=== PATIENT | female | born 1995 | race Caucasian/White ===

== ENCOUNTER 2023-04-03 17:55 | Emergency (ER) | payer OTHER, SELFPAY ==
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
[2023-04-03 18:52] VITALS: BP 150/114; PULSE 120; RESP 18; TEMP 36.8; O2SAT 97
[2023-04-03 20:37] LABS: Basophils Percent Auto 0.4 % (0.2-1.2); Eosinophils Absolute Auto 0.2 K/mm3 (0-0.3); Eosinophils Percent Auto 1.4 % (0-4.4); Hematocrit 44.5 % (37.0-47.0); Hemoglobin 15.3 g/dL (12.0-15.0); Immature Granulocyte Absolute 0.03 K/mm3 (0.00-0.031); Immature Granulocyte Percent A 0.3 % (0-0.5); Lymphocytes Absolute Auto 2.11 K/mm3 (0.9-3.2); Lymphocytes Percent Auto 20.3 % (18.3-44.2); Mean Corpuscular HGB Conc 34.4 g/dl (32-36); Mean Corpuscular Hemoglobin 32.1 pg (26-34); Mean Corpuscular Volume 93.3 fl (80-100); Mean Platelet Volume 10.4 fl (7.4-10.4); Monocytes Absolute Auto 0.8 K/mm3 (0.1-0.6); Monocytes Percent Auto 8.1 % (2.6-8.5); Neutrophils Absolute Auto 7.2 K/mm3 (1.3-6.7); Neutrophils Percent Auto 69.5 % (45.5-73.1); Platelet Count Result 355 k/mm3 (150-375); Red Blood Count 4.77 M/mm3 (4.2-5.4); Red Cell Distribution Width 11.9 % (11.5-14.5); White Blood Count 10.4 K/mm3 (4.5-10.0)
[2023-04-03 20:49] LABS: Prothrombin Time 13.2 Seconds (11.1-14.7)
[2023-04-03 20:50] LABS: Partial Thromboplastin Time 29.7 SECONDS (22.3-36.8)
[2023-04-03 20:51] LABS: Alanine Aminotransferase 36 U/L (6-35); Albumin Level 4.4 g/dL (3.5-5.1); Alkaline Phosphatase 79 U/L (38-126); Anion Gap 11 mmol/L (8-16); Aspartate Amino Transferase 34 U/L (14-36); Bilirubin,Total 0.5 mg/dL (0.2-1.3); Blood Urea Nitrogen 12 mg/dL (7-17); Carbon Dioxide 25 mmol/L (22-30); Chloride 104 mmol/L (98-107); Estimated CRCL calculation 129 ml/min; Estimated Glomerular Filt Rate > 60; Glucose 89 mg/dL (65-110); Potassium 3.7 mmol/L (3.4-5.0); Sodium 140 mmol/L (137-145)
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
[2023-04-03 22:29] VITALS: BP 133/92; PULSE 82; O2SAT 97
== END 2023-04-03 22:30 | disposition home or self-care (01) ==
PROVIDERS: Emergency Provider Physician Assistant; PCP Internal Medicine
DX: S16.1XXA Strain of muscle, fascia and tendon at neck level, initial encounter (principal); V44.5XXA Car driver injured in collision with heavy transport vehicle or bus in traffic accident, initial encounter
CPT/HCPCS: 36415; 70450; 71260; 72125; 72129; 72132; 74177; 80053; 81025; 85025; 85610; 85730; 99284; Q9967

== ENCOUNTER 2025-02-18 13:23 | Outpatient (CLI) | payer OTHER, SELFPAY ==
--- NOTE | ~2025-02-18 | US_ITS ---
US OB limited 02/18/2025 14:06 Indication: Vaginal bleeding with Procedure: High-resolution Limited obstetrical ultrasound utilizing transabdominal technique Comparison: No prior studies for comparison. Findings: There is a single living intrauterine in variable presentation. heart rate 151 BPM. Placenta is fundal/posterior measuring 4.1 cm to the cervix. Amniotic fluid is subjectively normal. Impression: 1: Single living intrauterine in variable presentation. Reviewed, dictated and finalized at location B. Impression: 1: Single living intrauterine in variable presentation.
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
--- OUTSIDE RECORDS SUMMARY | 2025-02-18 13:30 | XMS_ITS | Data Portability ---
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 [address], [facility] 04/20/2024 15:17:35 01/11/2025 text/html this patient is a 29-year-old female who presents for amenorrhea. She is a positive test. Ultrasound revealed a 1st trimester gestation. Patient has no complaints. We talked about early care. Talked about genetic screening. We talked about her ultrasound results. We talked about the 12 week ultrasound that has genetic screening components. She was given recommendations on exercise, diet, [id number]-[id number] medications. We reviewed her obstetric history. We reviewed her medical history. We reviewed her social history. She will begin routine care at her next visit. anxiety and depression - stable. pulmonic valve rugurg., Braydon Mcdaniel MD [address], [place], [address], [facility] 01/11/2025 11:11:42 OBGyn Episode Ob Episode Information Episode Created Date Number of Fetuses Patient Bloodtype Patient rh Status Prepregnancy Weight lbs Domestic Partner Domestic Partner Phone Father Name Head Filter Tank Tender Helper Status 02/09/20 25 1 Jaylen OPEN Fetus Data First Name Last Name Admitted to NICU Weight (g) Sex Living Outcome Pediatric Complications Fetus ID Race Codes Race Delivery Type [id number] Problems Problem Notes Problem Name Start Date End Date Resolution Snomed Code Not e History of rheumatic fever 02/08/2025 [id number] MFM Consult ref erral faxed 02/09 Thanh Calculation Initial Thanh Date Initial Exam Date Initial Exam Provider Initial Ultrasound Date Last Menstrual Period Date Ultra Sound Weeks Gestation 02/08/2025 01/11/2025 11/11/2024 8 Eighteen To Twenty Week Thanh Update Ultra Sound Date Fundal Height At Umbil Quickening Date Ultra Sound Latest Weeks Gestation Final Thanh Confirmed By Final Thanh Confirmed Date Final Thanh Date Ultra Sound Latest Days Gestation 0 [email or web address] 02/08/2025 08/18/20 25 0 Pre-nate Flowsheet Flowsheet Date 02/08/2025 Meneses Score Blood Edema Fundus Height Fundus Units Glucose Ketones Leukocytes Nitrite Labor Signs Protein Cervic Dilation Cervic Effacement Cervic Station Type Weight in lbs Pre/Post Dialysis Refused Weight [id number] BP Diastolic BP Location Tested BP Systolic BP Type 88 L arm 143 sitting Fetus Heart Rate Present Fetus Movement A No Comments this patient is a 29 year-ol d primiparous female at 12 weeks' gestation who presents for initial care. Her medical, surgical, obstetric history is unremarkable. She is vaccinated. She was given precautions recommendations for . We talked about vaccines in . Talked about care in detail. She is having genetic testing. She had a normal 12 week ultrasound. To begin routine care. Menstrual History Last Menstrual Date Menses Monthly On Bcp Conception Prior Menses Frequency Hcg Plus Date Menarche Onset Age 0311/11/2024 true Delivery Information Delivery Date Delivery Type Labor Anesthesia Weeks Gestation Incision Type Labor Labor Length Hrs Delivered By Post Complications Tubal Sterilization Discharge Date Comments Discharge Information Feeding Method Contraceptive Method Maternal HG B and HCT Levels
--- OUTSIDE RECORDS SUMMARY | 2025-02-18 13:30 | XMS_ITS | Clinical Summary ---
Author Organization [facility] Address [address] [place] [address] Care Team Providers Care Crushed Stone Grader Name Role Phone Unavailable Primary Care Provider Unavailabl e Social History Tobacco Use Types Packs/Day Years Used Date Smoking Tobacco: Never Assessed Comments Unknown Sex and Gender Information Value Date Recorded Sex Assigned at Not on file Legal Sex Female 9:38 AM CDT Gender Identity Not on file Sexual Orientation Not on file Plan of Treatment Health Maintenance Due Date Last Done Comments Hepatitis C Virus (HCV) Screening 1996 TdaP Immunization 1996 Hepatitis B Immunization (1 of 3 - 19+ 3-dose series) 2015 Pap Smear 2017 Influenza Immunization (#1) 05/09/202405/10, 06/17/2017 SARS-COV-2 Immunization ( season) 2024 10/10/2020, 09/12/2020 Respiratory Syncytial Virus (RSV) Immunization (Adult) (1 - 1-dose 75+ series) 2071 Meningococcal Immunization (ACWY) Aged Out No longer eligible b ased on patient's age to complete this topic Pneumococcal Immunization Combined Aged Out No longer eligible b ased on patient's age to complete this topic Rotavirus Immunization Aged Out No lo nger eligible based on patient's age to complete this topic Insurance [employer] on [place] [address] [place] [address]
--- OUTSIDE RECORDS SUMMARY | 2025-02-18 13:30 | XMS_ITS | Clinical Summary ---
Author Organization [facility] Address [address] [place] [address] Care Team Providers Care Remediation Bioanalytics Consultant Name Role Phone Alessandra Salmon MD Primary Care Provider + Allergies Active Allergy Reactions Criticality Noted Date Comments Amoxicillin-Pot Clavulanate Clindamycin Lactose Stomach upset Low 06/11/2012 Medications traMADoL (ULTRAM) 50 mg tabletIndicatio ns:Dog bite of right hand, initial encounter Take 1 tablet (50 mg total) by mouth every 6 (six) hours as needed for pain 15 tablet 2 Active ALPRAZolam (XANAX) 0.5 mg tablet Take 0.5 mg by mouth 3 (three) times a day as needed 0 Active albuterol HFA (PROVENTIL HFA,VENTOLIN HFA,PROAIR HFA) 90 mcg/actuation inhaler Inhale 2 puffs every 6 (six) hours as needed 4 Active busPIRone (BUSPAR) 5 mg tablet Take 5 mg by mouth 2 (two) times a day 2 Active etonogestreL (NEXPLANON) 68 mg implant by Subdermal route. Active FLUoxetine (PROzac) 20 mg tablet Take 20 mg by mouth daily 0 Active Active Problems Problem Noted Date Diagnosed Date Obesity with body mass index 30 or greater 01/08 Tricuspid valve insufficiency 12/18/2016 Rheumatic fever 12/18/2016 Diabetes mellitus 12/18/2016 Family History Medical History Relation Name Comments Hyperlipidemia Father High choleste rol - (Added by TW Conv) Hypertension Father Family history of hypertension - (Added by TW Conv) Hypertension Mother Family history of hypertension - (Added by TW Conv) Asthma Other Family history of asthma - (Added by TW Conv) Relation Name Status Comments Father Mother Other Social History Tobacco Use Types Packs/Day Years Used Date Smoking Tobacco: Never Comments No Sex and Gender Information Value Date Recorded Sex Assigned at Not on file Legal Sex Female 2:59 PM CDT Gender Identity Not on file Sexual Orientation Not on file Obstetrics History Last Filed Vital Signs Vital Sign Reading Time Taken Comments Blood Pressure 126/78 08/19/2023 8:16 AM PRUNER Pulse 111 08/19/2023 8:16 AM PRUNER Temperature 36.3 C (97.4 F) 08/19/2023 8:16 AM PRUNER Respiratory Rate 18 08/19/2023 8:16 AM PRUNER Oxygen Saturation 99% 08/19/2023 8:16 AM PRUNER Inhaled Oxygen Concentration - - Weight 97.5 kg (215 lb) 08/19/2023 8:16 AM PRUNER Height 175.3 cm (5' 9) 08/19/2023 8:16 AM PRUNER Body Mass Index 31.75 08/19/2023 8:16 AM PRUNER Plan of Treatment Health Maintenance Due Date Last Done Comments Albumin Creatinine Ratio, Urine 1996 Cervical Cancer Screening 1996 Depression Screening 1996 Hemoglobin A1C 1996 Hepatitis C Screening 1996 eGFR 1996 Dilated Eye Exam 1996 Foot Exam 1996 Lipid Panel 1996 Regular Well Visit/Exam 18-64 2014 Pneumococcal vaccine <65 (1 of 2 - PCV) 2015 Covid-19 Vaccine (5 - 2023-2 5 season) 2024 10/10/2021, 09/12/2021, 10/10/2020, Additional history exists Influenza Vaccine (Season Ended) 2025 06/06/2020, 06/17/2017, 06/08/2017, Additional history exists DTaP/Tdap/Td Vaccine (7 - Td or Tdap) 12/18/2026 12/18/2016, 05/12/2007, 12/13/1997, Additional history exists Hepatitis B Screening Completed 12/13/1997 , 12/13/1997, 1996, Additional history exists Varicella Vaccines Completed 07/22/2007, 05/22/1999 HPV Vaccines Completed 04/25/2010, 05/11, 04/05/2009 Insurance [employer] [facility] CHOICE PLUS [employer] O[employer] Care Teams Remediation Bioanalytics Consultant Relationship Specialty Start Date End Date Alessandra Salmon MD PCP - General Internal Medicine 01/11/22
--- OUTSIDE RECORDS SUMMARY | 2025-02-18 13:30 | XMS_ITS | Referral Summary ---
Author Organization [facility] Address [facility] [place] [address] Care Team Providers Care Veterinary Assistant Name Role Phone Alessandra Salmon MD Primary [...] 12/18/2016 Rheumatic fever 12/18/2016 Diabetes mellitus 12/18/2016 Social History Tobacco Use Types Packs/Day Years Used Date Smoking Tobacco: Never Comments No Sex and Gender Information Value Date Recorded Sex Assigned at Not on file Legal Sex Female 2:59 PM CDT Gender Identity Not on file Sexual Orientation Not on file Last Filed Vital Signs Vital Sign Reading Time Taken Comments Blood Pressure 126/78 08/19/2023 8:16 AM CIRCUIT BOARD DRAFTER Pulse 111 08/19/2023 8:16 AM CIRCUIT BOARD DRAFTER Temperature 36.3 C (97.4 F) 08/19/2023 8:16 AM CIRCUIT BOARD DRAFTER Respiratory Rate 18 08/19/2023 8:16 AM CIRCUIT BOARD DRAFTER Oxygen Saturation 99% 08/19/2023 8:16 AM CIRCUIT BOARD DRAFTER Inhaled Oxygen Concentration - - Weight 97.5 kg (215 lb) 08/19/2023 8:16 AM CIRCUIT BOARD DRAFTER Height 175.3 cm (5' 9) 08/19/2023 8:16 AM CIRCUIT BOARD DRAFTER Body Mass Index 31.75 08/19/2023 8:16 AM CIRCUIT BOARD DRAFTER Plan of Treatment Not on file Insurance [facility] CHOICE PLUS [facility] HMO/PPO Address: [address] [address] [place] [address] [employer] Care Teams Veterinary Assistant Relationship Specialty Start Date End Date Alessandra Salmon MD PCP - General Internal Medicine 01/11/22
== END 2025-02-18 13:24 | disposition home or self-care (01) ==
PROVIDERS: PCP Internal Medicine; Visit Provider Obstetrics & Gynecology
DX: O46.90 Antepartum hemorrhage, unspecified, unspecified trimester (principal); Z3A.00 Weeks of gestation of pregnancy not specified
CPT/HCPCS: 76815

== ENCOUNTER 2025-07-13 09:56 | Outpatient (RCR) | payer OTHER, SELFPAY ==
[2025-07-13 13:37] VITALS: BP 127/73; PULSE 84
== END 2025-08-27 11:39 | disposition other institution (70) ==
LOC: ANHOBOP 09:56
PROVIDERS: PCP Internal Medicine; Visit Provider Obstetrics & Gynecology
DX: O36.8130 Decreased fetal movements, third trimester, not applicable or unspecified (principal); Z3A.34 34 weeks gestation of pregnancy
CPT/HCPCS: 59025

== ENCOUNTER 2025-07-15 11:51 | Outpatient (CLI) | payer OTHER, SELFPAY ==
[2025-07-15] VITALS (10 sets, daily range): BP systolic 111–124; BP diastolic 62–77; PULSE 93–119; O2SAT 95–98
--- OUTSIDE RECORDS SUMMARY | 2025-07-15 12:25 | XMS_ITS | Clinical Summary ---
Author Organization [facility] Address [address] [place] [address] Care Team Providers Care Cloth Layer Name Role Phone Daniel Manjarrez MD Primary Care Provider [phone] Allergies Active Allergy Reactions Criticality Noted Date Comments Amoxicillin-Pot Clavulanate Nausea and Vomiting Medium 05/02/2016 Clindamycin Rash Low 11/28/2016 Lactose Abdominal Pain Low 06/11/2012 Medications Etonogestrel (NEXPLANON) 68 mg Implant by Subdermal route. 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 Active albuterol HFA 90 mcg inhaler Take [...] t be different from the original. OBGYN: [facility] Problem Noted Date Diagnosed Date 2018 novel [...] longer. Assessment & Plan (11/10/2017 1:59 PM PSYCHOLOGICAL OPERATIONS): Status: Major Depression Recurrent Mild - Suboptimal [...] rheumatic fever 11/28/2016 Overview (01/02/2017): Echo 09/2016 [facility] see scanned. Mild tricuspid regurg. AV normal. [...] on file Legal Sex Female 4:12 PM PSYCHOLOGICAL OPERATIONS Gender Identity Not on file Sexual Orientation [...] Health Maintenance Due Date Last Done Comments DIABETES ANNUAL FOOT EXAM 2014 DIABETES MICROALBUMIN ANNUAL SCREEN 2014 HPV/Cotest (21-29) 2017 LDL CHOLESTEROL ANNUAL 12/06/2018 12/06/2017, 2016 DIABETES ANNUAL RETINAL EXAM 05/26/2019 05/26/2018 CERVICAL CANCER SCREENING 02/07/2020 PAP SMEAR 02/07/2020 02/06/2017 (Prev iously completed) Preventative Visit- Commercial 09/08/2024 0 04/20/2024, 01/05/2024, 02/05/2023, Additional history exists INFLUENZA VACCINE (#1) 2025 7, 07/10/2015, 06/01/2014, Additional history exists DIABETES HBA1C Q 6 MONTHS 08/16/20252024, 12/27/2016, 11/28/2016 DTAP/TDAP/TD VACCINES (7 - T d or Tdap) 12/18/2026 12/18/2016, 05/12/2007, 12/13/1997, Additional history exists HEPATITIS B VACCINES Completed 12/13/1997, 1996, 1996 HPV VACCINES Completed 04/25/2010, 05/11, 04/05/2009 Procedures Procedure Name Priority Date/Time Associated Diagnosis Comments DIABETES EYE EXAM Routine 05/26/2018 LIPID PANEL Routine 12/06/2017 11:40 AM CDT Encounter for general adult medical examination with abnormal findings Class 3 obesity without serious comorbidity with body mass index (BMI) of 40.0 to 44.9 in adult, unspecified obesity type Hypertriglyceridemia HEMOGLOBIN A1C Routine 12/27/2016 1:23 PM CDT Cowper's gland cyst Irregular menstrual cycle from Last 3 Months or Most Recently Relevant to Health Maintenance Results * DIABETES EYE EXAM (05/26/2018) us Abstract Provider HEALTH MAINTENANCE Edited Resu lt - Final * (ABNORMAL) LIPID PANEL (12/06/2017 11:40 AM CDT) CHOLESTEROL 201(H) <200 mg/dL 12/06/2017 4:42 PM CDT [facility] TRIGLYCERIDE 154(H) <150 mg/dL 12/06/2017 4:42 PM CDT [facility] HDL 47 40 - 59 mg/dL 12/06/2017 4:42 PM CDT [facility] LDL CALCULATED 123(H) <100 mg/dL 12/06/2017 4:42 PM CDT [facility] NON-HDL CHOLESTEROL 154(H) <130 mg/dL 12/06/2017 4:42 PM CDT [facility] Blood Venipuncture / Unknown 12/06/2017 11:40 AM CDT 12/06/2017 11:40 AM CDT Narrative [facility] - 12/06/2017 4:42 PM CDT TOTAL CHOLESTEROL mg/dL Desirable <200 Borderline high 200-239 High >=240 TRIGLYCERIDES mg/dL Normal <150 Borderline high 150-199 High 200-499 Very high >=500 HDL CHOLESTEROL mg/dL Low <40 Normal 40-59 Desirable >=60 NON HDL CHOLESTEROL mg/dL Optimal <130 Near Optimal 130-159 Borderline High 160-189 Very High >=190 Calculated LDL mg/dL Optimal <100 Near Optimal 100-129 Borderline High 130-159 High 160-189 Very High >=190 ATPIII Guidelines Reference Ranges for Lipid Panels (NCEP/AMA) Daniel Manjarrez MD CHEMISTRY ORDERABLES Final Resu lt [facility]# [id number] [address] [place] [address] * HEMOGLOBIN A1C (12/27/2016 1:23 PM CDT) HEMOGLOBIN A1C 4.7 4.0 - 6.0 % 12/27/2016 6:43 PM CDT [facility] Comment:Note: Effective as o f 09/29/2015 a new methodology, Turbidimetric inhibition immunoassay (TINIA),has been implemented. EST. AVG GLUCOSE, A1C 88 mg/dL 12/27/2016 6:43 PM CDT [facility] Blood Venipuncture / Unknown 12/27/2016 1:23 PM CDT 12/27/2016 1:23 PM CDT External Provider [facility] CHEMISTRY ORDERABLES Fin al Result [facility] CLIA# [id number] [address] [place] [id number] from Last 3 Months or Most Recently Relevant to Health Maintenance Insurance BLUE ACCESS/TRUE BLUE PPO Care Teams Cloth Layer Relationship Specialty Start Date End Date Daniel Manjarrez MD PCP - General Family Practice 11/28/16
--- OUTSIDE RECORDS SUMMARY | 2025-07-15 12:25 | XMS_ITS | Clinical Summary ---
Author Organization [facility] Address [address] [place] [address] Care Team Providers Care Db2 Systems Programmer Name Role Phone Alessandra Salmon MD Primary [...] Comments Blood Pressure 126/78 08/19/2023 8:16 AM WATER POLLUTION SCIENTIST Pulse 111 08/19/2023 8:16 AM WATER POLLUTION SCIENTIST Temperature 36.3 C (97.4 F) 08/19/2023 8:16 AM WATER POLLUTION SCIENTIST Respiratory Rate 18 08/19/2023 8:16 AM WATER POLLUTION SCIENTIST Oxygen Saturation 99% 08/19/2023 8:16 AM WATER POLLUTION SCIENTIST Inhaled Oxygen Concentration - - Weight 97.5 kg (215 lb) 08/19/2023 8:16 AM WATER POLLUTION SCIENTIST Height 175.3 cm (5' 9) 08/19/2023 8:16 AM WATER POLLUTION SCIENTIST Body Mass Index 31.75 08/19/2023 8:16 AM WATER POLLUTION SCIENTIST Plan of Treatment Health Maintenance Due Date Last Done Comments Albumin Creatinine Ratio, Urine 1996 Cervical Cancer Screening 1996 Depression Screening 1996 Hemoglobin A1C 1996 Hepatitis C Screening 1996 eGFR 1996 Dilated Eye Exam 1996 Foot Exam 1996 Lipid Panel 1996 Regular Well Visit/Exam 18-64 2014 Pneumococcal vaccine <65 (1 of 2 - PCV) 2015 Covid-19 Vaccine (5 - 2024-2 6 season) 2025 10/10/2021, 09/12/2021, 10/10/2020, Additional history exists Influenza Vaccine (#1) 2025 , 06/17/2017, 06/08/2017, Additional history exists DTaP/Tdap/Td Vaccine (7 - Td or Tdap) 12/18/2026 12/18/2016, 05/12/2007, 12/13/1997, Additional history exists Hepatitis B Screening Completed 12/13/1997 , 1996, 1996 Varicella Vaccines Completed 07/22/2007, 05/22/1999 HPV Vaccines Completed 04/25/2010, 05/11, 04/05/2009 Insurance [facility] CHOICE PLUS [employer] OOS Care Teams Db2 Systems Programmer Relationship Specialty Start Date End Date Alessandra Salmon MD PCP - General Internal Medicine 01/11/22
--- OUTSIDE RECORDS SUMMARY | 2025-07-15 12:25 | XMS_ITS | Clinical Summary ---
Author Organization [facility] [email or web address] Address [address] [place] [address] Care Team Providers Care Clinic Lpn Name Role Phone Unavailable Primary Care Provider Unavailabl e Source Comments [facility] [email or web address],non-owned Affiliates and Associated Physician Practices is amultiple site organization consisting of ambulatory clinics and hospital sitesin [place], [place], [place] and [place]. This disclosure is being madepursuant to the Care Everywhere program and may not contain all information available regarding this patient. Last updated 18.[facility] [email or web address] Allergies Active Allergy Reactions Criticality Noted Date Comments Augmentin 06/06/2016 Clindamycin 06/06/2016 Medications * Be aware that medications may not be up to date on this document. Alwaysverify current medications with the patient. albuterol HFA (PROAIR HFA) 108 (90 BASE) MCG/ACT inhaler Inhale 2 (two) puffs by mouth every 6 hours as needed Active albuterol HFA (VENTOLIN HFA) 108 (90 BASE) MCG/ACT inhaler Inhale 2 Puffs by mouth every 4 hours as needed for Shortness of Breath, Wheezing or Cough 1 Inhaler 0 6 Active Vit-DSS-Fe Fum-FA ( vitamin with iron) tabletIndicatio ns: Take 1 (one) tablet by mouth once daily Reasons: Active ondansetron, disintegrating, (Zofran ODT) 4 MG tablet Take 1 (one) tablet by mouth every 6 hours as needed for Nausea/Vomitin g Allow tablet to dissolve on the tongue Active Active Problems Problem Noted Date Diagnosed Date Obesity affecting in second trimester 03/09/2025 History of rheumatic fever as a child 03/09/2025 History of hypothyroidism 03/09/2025 Estimated Date of Delivery Comme nts Yes 08/18/2025 Based on last me nstrual period of 11/11/2024 Encounters Date Type Department Care Team Description 07/01/2025 12:51 PM CDT - 07/01/2025 11:59 PM CDT Hospital Encounter [facility] [address] [place] [id number] Charlie Che DO AIRPLANE [employer]CH[employer]IC Discharge Disposition: Home or Self Care 06/03/2025 8:08 AM CDT - 06/03/2025 11:59 PM CDT Hospital Encounter [facility] [address] [place] [phone] Scott Shields MD Discharge Disposition: Home or Self Care 05/06/2025 8:45 AM CDT - 05/06/2025 11:59 PM CDT Hospital Encounter [facility] [address] [place] [phone] Scott Shields MD Discharge Disposition: Home or Self Care from Last 3 Months Family History Medical History Relation Name Comments Diabetes - Type 2 Brother High Cholesterol Brother COPD - Chronic Obstructive Pulmonary Disease Father CVA Father Diabetes - Type 2 Father High Cholesterol Father Hypertension Father Other - Cardiac Father Dementia Maternal Grandfather High Cholesterol Maternal Grandfather Hypertension Maternal Grandfather High Cholesterol Maternal Grandmother Hypertension Maternal Grandmother Renal Disease Maternal Grandmother Anxiety Disorder Mother Depression Mother Diabetes - Type 2 Mother Hepatitis Mother Hypertension Mother CAD (Coronary Artery Disease) Other uncle Cancer - Lung Paternal Grandfather High Cholesterol Paternal Grandfather Hypertension Paternal Grandfather Cancer - Breast Paternal Grandmother Diabetes - Type 2 Sister Relation Name Status Comments Brother Father Maternal Grandfather Maternal Grandmother Mother Other uncle Paternal Grandfather Paternal Grandmother Sister Social History Tobacco Use Types Packs/Day Years Used Date Smoking Tobacco: Never Smokeless Tobacco: Never Tobacco Cessation:Counseling Given: Not Answered Alcohol Use Standard Drinks/Week Comments Not Currently 0 (1 standard drink = 0.6 oz pur e alcohol) Estimated Date of Delivery Comme nts Yes 08/18/2025 Based on last me nstrual period of 11/11/2024 Sex and Gender Information Value Date Recorded Sex Assigned at Not on file Legal Sex Female 5:37 AM MOLDER FEEDER Gender Identity Not on file Sexual Orientation Not on file Last Filed Vital Signs Vital Sign Reading Time Taken Comments Blood Pressure 129/77 03/02/2025 9:29 AM CDT Pulse 87 03/02/2025 9:29 AM CDT Temperature 37.1 C (98.7 F) 06/06/2016 2:50 PM CDT Respiratory Rate 20 06/06/2016 2:50 PM CDT Oxygen Saturation 99% 03/02/2025 9:29 AM CDT Inhaled Oxygen Concentration - - Weight 125 kg (275 lb 9.6 oz) 03/02/2025 9:29 AM CDT Height 175.3 cm (5' 9) 03/02/2025 9:29 AM CDT Body Mass Index 40.7 03/02/2025 9:29 AM CDT Plan of Treatment Upcoming Encounters Date Type Department Care Team (Late st Contact Info) Description 07/18/2025 7:30 AM MOLDER FEEDER Hospital Encounter [facility] [address] [place] [phone] 07/18/2025 8:15 AM MOLDER FEEDER Hospital Encounter [facility] [address] [place] [phone] 07/19/2025 2:30 PM MOLDER FEEDER Hospital Encounter [facility] [address] [place] [phone] Health Maintenance Due Date Last Done Comments HEPATITIS C SCREENING 03/21/2014 DTAP/TDAP/TD VACCINES (1 - Tdap) 2015 HEPATITIS B VACCINE (1 of 3 - 19+ 3-dose series) 2015 PNEUMOCOCCAL VACCINE (1 of 2 - PCV) 2015 PAP SMEAR 2017 HPV VACCINE (1 - 3-dose SCDM series) 2023 DEPRESSION SCREENING 09/08/2024 COVID-19 VACCINE ( season) 2025 10/10/2021, 09/12/2021, 10/10/2020, Additional history exists INFLUENZA VACCINE (#1) 2025 , 06/05/2022, 06/06/2020, Additional history exists OB-ONE HOUR GLUCOSE 05/12/2025 OB-TDAP CURRENT 05/19/2025 12/18/2016, 12/2006 OB-RHOGAM INJECTION 05/26/2025 Respiratory Syncytial Virus (RSV) Vaccine Pt: or over 60 yrs (1 - Risk 1-dose series) 06/23/2025 OB-GROUP B STREP SCREEN 07/14/2025 ZOSTER VACCINE (1 of 2) 2046 HIV SCREENING Completed 05/27/2025, 02/14/2025 HIB VACCINE Aged Out No longer eligi ble based on patient's age to complete this topic MENINGOCOCCAL (Group B) VACCINE SHARED DECISION-MAKING Aged Out No longer eligible based on patient's age to complete this topic MENINGOCOCCAL GROUPS A/C/Y/W VACCINE Aged Out No longer eligible based on patient's age to complete this topic Procedures Procedure Name Priority Date/Time Associated Diagnosis Comments SONOGRAM - COMPLETE Routine 07/01/2025 1 2:54 PM CDT Maternal morbid obesity in third trimester, antepartum (HCC) History of rheumatic fever as a child History of hypothyroidism Encounter for ultrasound to assess growth (HCC) SONOGRAM - COMPLETE Routine 06/03/2025 8 :13 AM CDT Obesity affecting in second trimester, unspecified obesity type (HCC) History of rheumatic fever as a child History of hypothyroidism 28 weeks gestation of (HCC) Encounter for ultrasound to assess growth (HCC) SONOGRAM - COMPLETE Routine 05/06/2025 8 :54 AM CDT History of rheumatic fever as a child History of hypothyroidism Obesity affecting in second trimester, unspecified obesity type (HCC) 24 weeks gestation of (HCC) Encounter for follow-up ultrasound of anatomy (HCC) from Last 3 Months Results * Sonogram - Complete (07/01/2025 12:54 PM CDT) Only the most recent of3 resultswithin the time period is included. Linked Results Indication ======== Screening Follow-Up Obesity complicating , Class 3 - BMI of 40.0 or greater Vaginal bleeding less than 20 wks, unspecified - hemorrhage in Resolved early , unspecified Maternal History of Rheumatic Fever Vaginal bleeding February 11 History ====== OB History 1 Lab Tests Test Date Result NIPT Low risk, Female Maternal Assessment Physical Exam Height 175 cm, 5 ft 9 in. Weight 134 kg, 296 lb. Initial weight 125 kg, 275 lb. BMI 43.71 kg/m . Initial BMI 40.61 kg/m . Weight gain 10 kg, 21 lb Method ====== Transabdominal ultrasound. View: Sufficient ========= Meyers . Number of fetuses: 1 Dating ====== Date Details Gest. age SHIVAM LMP 11/11/2024 33 w + 1 d 08/18/2025 Stated SHIVAM 33 w + 1 d 08/18/2025 U/S 07/01/2025 based upon AC, BPD, Femur, HC 34 w + 2 d 08/10/2025 Assigned dating based on stated SHIVAM, selected on 03/02/2025 33 w + 1 d 08/18/2025 General Evaluation Cardiac activity present. FHR 137 bpm. Presentation: cephalic Placenta: Placental site: posterior, left lateral no previa Amniotic fluid: Amount of AF: normal. MVP 4.3 cm. ALICIA 13.5 cm. Q1 3.2 cm, Q2 4.3 cm, Q3 2.1 cm, Q4 3.8 cm Biometry BPD 84.8 mm 34w 1d 74% Hadlock HC 307.8 mm 34w 2d 43% Hadlock AC 315.0 mm 35w 3d 96% Hadlock Femur 64.6 mm 33w 2d 44% Hadlock Humerus 59.0 mm 34w 1d 87% Sheri HC / AC 0.98 Weight Calculation: EFW 2,476 g 83% Hadlock EFW (lb,oz) 5 lb 7 oz EFW by Hadlock ([id number]-[id number]) overall normal range, but the AC is >90% Growth Overview Exam date GA BPD (mm) HC (mm) AC (mm) FL (mm) HL (mm) EFW (g) 03/02/2025 15w 6d 32.4 58% 119.4 38% 111.4 86% 17.2 17% 19.2 44% 143 52% 04/04/2025 20w 4d 46.5 28% 178.8 30% 170.4 86% 33.4 38% 34.1 84% 404 76% 05/06/2025 25w 1d 57.3 4% 219.1 4% 217.9 75% 46.6 48% 42.3 50% 829 60% 06/03/2025 29w 1d 73.7 51% 272.3 33% 262 78% 55.5 37% 49.3 36% 1469 63% 07/01/2025 33w 1d 84.8 74% 307.8 43% 315 96% 64.6 44% 59 87% 2476 83% Anatomy The following structures appear normal: Abdomen Stomach. Kidneys. Bladder. sex: female. Impression ========= Here today for her interval growth ultrasound to increased BMI greater than 35. Single, live, intrauterine at 33w 1d The size is overall normal range, but the AC is >90% . The amniotic fluid volume is normal. Normal appearing posterior left lateral placenta. No major malformations were seen within the limitations of ultrasound. The anatomical survey had been previously completed. Comment ======== The biometry showing good interval growth and the estimated weight is appropriate for the gestational age however at the AC measures 96% which most likely represents a constitutionally large fetus in light of her negative glucose screen but GDM can not be ruled out with certainty. The amniotic fluid is normal and they were good movements noted. ultrasound alone cannot detect all structural, genetic, or functional , placental, or maternal abnormalities Follow-up ======== Due to BMI greater than 35 will recommend initiation of weekly testing at 36 weeks and repeat interval growth ultrasound in 4 weeks if remains undelivered. labor and preeclampsia precautions along with kick counts. Thank you for allowing us to partake in your patient's care. Coding ====== Diagnoses O20.9: Hemorrhage in early , unspecified O99.213, E66.813: Obesity complicating , Class 3 - BMI of 40.0 or greater Z36.2: Encounter for other screening follow-up Procedures 71984: US Preg Uterus Follow Up [facility] [employer] PACS Anatomical Region Laterality Modality Other 07/01/2025 12:5 4 PM CDT R Jair Mcdaniel MD [facility] ORDERABLES Edited Result - Final from Last 3 Months Insurance [facility]
--- OUTSIDE RECORDS SUMMARY | 2025-07-15 12:25 | XMS_ITS | Clinical Summary ---
Author Organization [facility] Address [address] [place] [address] Care Team Providers Care Retail Director Name Role Phone Unavailable Primary Care Provider [...] of 3 - 19+ 3-dose series) 2015 Human Papillomavirus (HPV) Immunization (1 - 3-dose SCDM series) 2023 Influenza Immunization (#1) 05/09/202505/10, 06/17/2017 SARS-COV-2 Immunization ( season) 2025 10/10/2020, 09/12/2020 Respiratory Syncytial Virus (RSV) Immunization [...]
[2025-07-15] MEDS: diphenhydrAMINE HCl CAP 25 MG CAPSULE PO (12:43)
[2025-07-15] MEDS: METOCLOPRAMIDE HCL 10 MG TABLET PO (12:43)
[2025-07-15 12:58] LABS: Hematocrit 36.3 % (37.0-47.0); Hemoglobin 12.3 g/dL (12.0-15.0); Immature Granulocyte Percent A 0.4 % (0-0.5); Lymphocytes Absolute Auto 1.36 K/mm3 (0.9-3.2); Mean Corpuscular HGB Conc 33.9 g/dl (32-36); Mean Corpuscular Hemoglobin 31.9 pg (26-34); Mean Corpuscular Volume 94.0 fl (80-100); Nucleated Red Blood Cells Absolute Auto 0.000 K/mm3 (0.0-0.012); Nucleated Red Blood Cells Perc 0.0 % (0.0-0.2); Platelet Count Result 256 k/mm3 (150-375); Red Blood Count 3.86 M/mm3 (4.2-5.4); White Blood Count 8.6 K/mm3 (4.5-10.0)
[2025-07-15 13:13] LABS: Alanine Aminotransferase 21 U/L (6-35); Albumin Level 3.3 g/dL (3.5-5.1); Alkaline Phosphatase 86 U/L (38-126); Anion Gap 7 mmol/L (4-12); Aspartate Amino Transferase 25 U/L (14-36); Bilirubin,Total 0.4 mg/dL (0.2-1.3); Blood Urea Nitrogen 3 mg/dL (7-17); Calcium 8.6 mg/dL (8.4-10.2); Carbon Dioxide 21 mmol/L (22-30); Chloride 106 mmol/L (98-107); Estimated Glomerular Filt Rate > 60; Glucose 103 mg/dL (65-110); Potassium 3.8 mmol/L (3.4-5.0); Sodium 134 mmol/L (137-145); Total Protein 6.6 g/dL (6.3-8.2); Uric Acid 3.9 mg/dL (2.5-7.5)
[2025-07-15 13:17] LABS: Add Urine Microscopic? YES; Appearance Urine Cloudy (Clear); Glucose Urine UA Negative (Negative); Leukocyte Esterase Ur 1+ LEU/UL (Negative); Need Manual Microscopic Reviewed; Nitrate Urine Negative (Negative); Non Pathogenic Casts 0-2; Specific Grav Ur 1.013 (1.001-1.035)
[2025-07-15 13:25] LABS: Total Protein Urine Random 14 mg/dL
[2025-07-15 13:37] LABS: Ur Ttl Prot Creatinine Ratio 0.12 mg/mg (0-0.20)
== END 2025-07-15 13:55 | disposition home or self-care (01) ==
LOC: ANHOBOP 12:03 → ANHLDR 12:07
PROVIDERS: PCP Internal Medicine; Visit Provider Advanced Practice Midwife
DX: O13.9 Gestational [pregnancy-induced] hypertension without significant proteinuria, unspecified trimester (principal); R82.90 Unspecified abnormal findings in urine; Z3A.00 Weeks of gestation of pregnancy not specified
CPT/HCPCS: 36415; 59025; 80053; 81001; 82570; 84156; 84550; 85025; 87086; 99199; A9270

== ENCOUNTER 2025-08-15 16:43 | Inpatient (IN) | payer OTHER, SELFPAY ==
[2025-08-15] VITALS (94 sets, daily range): BP systolic 100–146; BP diastolic 62–101; PULSE 67–116; RESP 14; TEMP 36.7–36.9; O2SAT 78–100; BMI 41.4
[2025-08-15 17:18] LABS: Hematocrit 36.8 % (37.0-47.0); Hemoglobin 12.9 g/dL (12.0-15.0); Immature Granulocyte Percent A 0.5 % (0-0.5); Lymphocytes Absolute Auto 1.76 K/mm3 (0.9-3.2); Mean Corpuscular HGB Conc 35.1 g/dl (32-36); Mean Corpuscular Hemoglobin 31.6 pg (26-34); Mean Corpuscular Volume 90.2 fl (80-100); Nucleated Red Blood Cells Absolute Auto 0.000 K/mm3 (0.0-0.012); Nucleated Red Blood Cells Perc 0.0 % (0.0-0.2); Platelet Count Result 275 k/mm3 (150-375); Red Blood Count 4.08 M/mm3 (4.2-5.4); White Blood Count 9.8 K/mm3 (4.5-10.0)
--- NOTE | 2025-08-15 17:40 | LDADM ---
This patient, Violetta Fuentes, was admitted to Labor/Delivery/Recovery 108 on 08/15/25 at 16:43. Plans for labor, pain management and were discussed with patient. Patient/family oriented to hospital policies and general routines including ID bracelet, bed and alarms, visiting hours, pain management, procedures, bathroom and other care routines, personal items, smoking policy, room service/diet and guest tray routines, security routines, and visiting hours. Patient/Family are encouraged to report perceived risks to care and to ask questions if they do not understand what they are told or what they should do. See OBIX for further documentation.
[2025-08-15 18:07] LABS: Syphilis IgG/IgM Antibody Non-Reactive (Nonreactive)
[2025-08-16] VITALS (285 sets, daily range): BP systolic 101–175; BP diastolic 52–138; PULSE 29–152; RESP 17; TEMP 36.6–37.4; O2SAT 78–100
--- NOTE | 2025-08-16 00:34 | PM.IMHP2 ---
H&P: HPI History of Present Illness Date/Time: 08/16/25 00:34 Chief Complaint: elective induction of labor Narrative: Patient is a 30 year old at 39w4d who presents for elective induction of labor. has been complicated by obesity with normal testing. She reports good movement. Denies strong contractions, leakage of fluid or vaginal bleeding. Review of Systems Review of Systems: All systems reviewed & are unremarkable except as noted in HPI and below PMFSH Past Medical History Medical History No active medical problems Family History Family History Mother Hypertension Diabetes 1.5, managed as type 2 Cirrhosis Hyperlipidemia Father Hypertension COPD (chronic obstructive pulmonary disease) with emphysema Cerebrovascular accident Hyperlipidemia Grandparent Breast cancer Lung cancer Hypertension Hyperlipidemia Sibling Diabetes 1.5, managed as type 2 Social History Social History Smoking status: Never smoker Substance use: never Lack of Transportation: No Lack of Food: Never True Current Housing: I Have Housing Concerned About Future Housing: No Difficulty Paying Gas/Electric Bills: No Difficulty Paying for Meds: No Currently Unemployed: No Education: Associate Degree Difficulty w/ Childcare or Family Care: No Spiritual care concerns: No Meds Home Medications and Allergies Home Medications ?Medication ?Instructions ?Recorded ?Confirmed ?Type aspirin 81 mg capsule 162 mg PO DAILY 07/22/25 07/22/25 History vits no.130-ferrous fum 1 tablet PO DAILY 07/22/25 07/22/25 History 27 mg iron-folic acid 800 mcg tablet ( Vitamin) Allergies Allergy/AdvReac Type Severity Reaction Status Date / Time clindamycin Allergy Rash Verified 08/15/25 17:40 amoxicillin (From Augmentin) AdvReac Gastrointestinal Verified 08/15/25 17:40 Upset clavulanic acid (From AdvReac Gastrointestinal Verified 08/15/25 17:40 Augmentin) Upset Vital Signs Vital Signs - 24 hr 08/15/25 17:00 08/15/25 17:15 08/15/25 17:25 Temperature Pulse Rate 101 H 93 Respiratory Rate Blood Pressure 118/84 128/89 Pulse Oximetry 100 Oxygen Delivery 08/15/25 17:30 08/15/25 17:35 08/15/25 17:39 Temperature 98.4 F Pulse Rate 94 Respiratory Rate Blood Pressure 125/84 Pulse Oximetry 100 100 Oxygen Delivery Room Air 08/15/25 17:40 08/15/25 17:45 08/15/25 17:50 Temperature Pulse Rate Respiratory Rate Blood Pressure Pulse Oximetry 100 100 100 Oxygen Delivery 08/15/25 17:55 08/15/25 18:00 08/15/25 18:05 Temperature Pulse Rate 97 Respiratory Rate Blood Pressure 100/71 Pulse Oximetry 100 100 100 Oxygen Delivery 08/15/25 18:10 08/15/25 18:15 08/15/25 18:20 Temperature Pulse Rate Respiratory Rate Blood Pressure Pulse Oximetry 100 100 100 Oxygen Delivery 08/15/25 18:26 08/15/25 18:27 08/15/25 18:28 Temperature Pulse Rate Respiratory Rate Blood Pressure Pulse Oximetry 78 L 100 100 Oxygen Delivery 08/15/25 18:30 08/15/25 18:33 08/15/25 18:34 Temperature 98.2 F Pulse Rate 91 Respiratory Rate 14 Blood Pressure 137/93 H Pulse Oximetry 100 100 Oxygen Delivery 08/15/25 18:39 08/15/25 18:44 08/15/25 18:49 Temperature Pulse Rate Respiratory Rate Blood Pressure Pulse Oximetry 100 100 99 Oxygen Delivery 08/15/25 18:54 08/15/25 18:59 08/15/25 19:00 Temperature Pulse Rate 95 Respiratory Rate Blood Pressure 143/86 H Pulse Oximetry 100 100 Oxygen Delivery 08/15/25 19:04 08/15/25 19:09 08/15/25 19:14 Temperature Pulse Rate Respiratory Rate Blood Pressure Pulse Oximetry 100 100 99 Oxygen Delivery 08/15/25 19:19 08/15/25 19:24 08/15/25 19:29 Temperature Pulse Rate Respiratory Rate Blood Pressure Pulse Oximetry 100 100 100 Oxygen Delivery 08/15/25 19:30 08/15/25 19:34 08/15/25 19:39 Temperature Pulse Rate 91 Respiratory Rate Blood Pressure 130/64 Pulse Oximetry 100 99 Oxygen Delivery 08/15/25 19:44 08/15/25 19:49 08/15/25 19:54 Temperature Pulse Rate Respiratory Rate Blood Pressure Pulse Oximetry 97 98 99 Oxygen Delivery 08/15/25 19:59 08/15/25 20:00 08/15/25 20:04 Temperature Pulse Rate 95 Respiratory Rate Blood Pressure 137/82 Pulse Oximetry 100 98 Oxygen Delivery 08/15/25 20:09 08/15/25 20:14 08/15/25 20:19 Temperature Pulse Rate Respiratory Rate Blood Pressure Pulse Oximetry 97 97 99 Oxygen Delivery 08/15/25 20:24 08/15/25 20:29 08/15/25 20:31 Temperature Pulse Rate 111 H Respiratory Rate Blood Pressure 146/101 H Pulse Oximetry 100 99 Oxygen Delivery 08/15/25 20:34 08/15/25 20:39 08/15/25 20:44 Temperature Pulse Rate Respiratory Rate Blood Pressure Pulse Oximetry 100 99 100 Oxygen Delivery 08/15/25 20:49 08/15/25 20:54 08/15/25 20:59 Temperature Pulse Rate Respiratory Rate Blood Pressure Pulse Oximetry 98 99 97 Oxygen Delivery 08/15/25 21:00 08/15/25 21:04 08/15/25 21:09 Temperature Pulse Rate 99 Respiratory Rate Blood Pressure 126/62 Pulse Oximetry 98 97 Oxygen Delivery 08/15/25 21:14 08/15/25 21:19 08/15/25 21:24 Temperature Pulse Rate Respiratory Rate Blood Pressure Pulse Oximetry 97 98 97 Oxygen Delivery 08/15/25 21:30 08/15/25 21:32 08/15/25 21:37 Temperature 98.1 F Pulse Rate Respiratory Rate Blood Pressure Pulse Oximetry 99 100 98 Oxygen Delivery 08/15/25 21:42 08/15/25 21:47 08/15/25 21:52 Temperature Pulse Rate Respiratory Rate Blood Pressure Pulse Oximetry 98 97 97 Oxygen Delivery 08/15/25 21:57 08/15/25 22:00 08/15/25 22:02 Temperature Pulse Rate 91 Respiratory Rate Blood Pressure 137/82 Pulse Oximetry 97 96 Oxygen Delivery 08/15/25 22:07 08/15/25 22:12 08/15/25 22:17 Temperature Pulse Rate Respiratory Rate Blood Pressure Pulse Oximetry 95 95 98 Oxygen Delivery 08/15/25 22:22 08/15/25 22:27 08/15/25 22:30 Temperature Pulse Rate 81 Respiratory Rate Blood Pressure 134/78 Pulse Oximetry 96 94 Oxygen Delivery 08/15/25 22:32 08/15/25 22:37 08/15/25 22:42 Temperature Pulse Rate Respiratory Rate Blood Pressure Pulse Oximetry 94 94 94 Oxygen Delivery 08/15/25 22:47 08/15/25 22:52 08/15/25 22:57 Temperature Pulse Rate Respiratory Rate Blood Pressure Pulse Oximetry 94 95 96 Oxygen Delivery 08/15/25 23:00 08/15/25 23:02 08/15/25 23:07 Temperature Pulse Rate 84 Respiratory Rate Blood Pressure 136/83 Pulse Oximetry 96 96 Oxygen Delivery 08/15/25 23:12 08/15/25 23:17 08/15/25 23:22 Temperature Pulse Rate Respiratory Rate Blood Pressure Pulse Oximetry 95 96 95 Oxygen Delivery 08/15/25 23:27 08/15/25 23:30 08/15/25 23:32 Temperature Pulse Rate 97 Respiratory Rate Blood Pressure 133/77 Pulse Oximetry 97 96 Oxygen Delivery 08/15/25 23:37 08/15/25 23:42 08/15/25 23:47 Temperature Pulse Rate Respiratory Rate Blood Pressure Pulse Oximetry 98 96 96 Oxygen Delivery 08/15/25 23:52 08/15/25 23:57 08/16/25 00:00 Temperature Pulse Rate 93 Respiratory Rate Blood Pressure 138/83 Pulse Oximetry 95 95 Oxygen Delivery 08/16/25 00:02 08/16/25 00:07 08/16/25 00:12 Temperature Pulse Rate Respiratory Rate Blood Pressure Pulse Oximetry 94 95 95 Oxygen Delivery 08/16/25 00:17 08/16/25 00:22 08/16/25 00:27 Temperature Pulse Rate Respiratory Rate Blood Pressure Pulse Oximetry 94 94 95 Oxygen Delivery 08/16/25 00:30 08/16/25 00:32 Temperature Pulse Rate 85 Respiratory Rate Blood Pressure 132/89 Pulse Oximetry 95 Oxygen Delivery Exam Const: General: comfortable and no acute distress Orientation/consciousness: patient oriented x3 Eyes: General: appearance normal, both eyes and all related structures Resp: Effort & Inspection: normal respiratory effort Cardio: Rate: regular rate Skin: General skin exam: normal color Extrem: General: normal to inspection Psych: Mental Status: mental status grossly normal Results Labs Labs: Short CBC 08/15/25 Range/Units 17:01 WBC 9.8 (4.5-10.0) K/mm3 Hgb 12.9 (12.0-15.0) g/dL Hct 36.8 L (37.0-47.0) % Plt Count 275 (150-375) k/mm3 Assessment and Plan Assessment and plan (1) Encounter for elective induction of labor: Code(s): Z34.90 - Encounter for supervision of normal , unspecified, unspecified trimester Status: Acute Assessment and Plan: - complicated by obesity, reactive testing - cytotec per protocol - FHR category I - SVE 1.5/50/-3 on arrival
--- NOTE | 2025-08-16 07:46 | PM.OBPNLAB ---
Pain Control Date/time seen: 08/16/25 07:46 Comments: SVE /-2 AROM small amount of clear fluid
[2025-08-16] MEDS: LACTATED RINGERS 1,000 ML 125 ML IV CONT ×3 (08:05→15:45)
[2025-08-16] MEDS: OXYTOCIN 30 UNITS/NS 500 ML 30 UNITS/500 ML BAG IV CONT (08:08)
--- NOTE | 2025-08-16 10:13 | WPDANESEPPF ---
Anes - Initial Pre Proc Eval Procedure: labor epidural Date/Time: 08/16/25 10:13 Surgeon: Lamin Muniz MD Pre Op Diagnosis: labor pain Pre Op Diagnosis: IOL Patient Data Age: 30 Gender: F Height: 1.75 m Weight: 127.3 kg Last Vital Signs Temp 36.9 C 08/16/25 07:11 Pulse 78 08/16/25 10:00 Resp 14 08/15/25 18:30 BP 129/78 08/16/25 10:00 Pulse Ox 97 08/16/25 10:11 O2 Del Method Room Air 08/15/25 17:39 Allergies Allergy/AdvReac Type Severity Reaction Status Date / Time clindamycin Allergy Rash Verified 08/15/25 17:40 amoxicillin (From Augmentin) AdvReac Gastrointestinal Verified 08/15/25 17:40 Upset clavulanic acid (From AdvReac Gastrointestinal Verified 08/15/25 17:40 Augmentin) Upset Home Medications ?Medication ?Instructions ?Recorded ?Confirmed ?Type aspirin 81 mg capsule 162 mg PO DAILY 07/22/25 07/22/25 History vits no.130-ferrous fum 1 tablet PO DAILY 07/22/25 07/22/25 History 27 mg iron-folic acid 800 mcg tablet ( Vitamin) Laboratory Tests 08/15/25 17:01 WBC 9.8 K/mm3 (4.5-10.0) RBC 4.08 L M/mm3 (4.2-5.4) Hgb 12.9 g/dL (12.0-15.0) Hct 36.8 L % (37.0-47.0) MCV 90.2 fl (80-100) MCH 31.6 pg (26-34) MCHC 35.1 g/dl (32-36) RDW 12.9 % (11.5-14.5) Plt Count 275 k/mm3 (150-375) MPV 10.9 H fl (7.4-10.4) Immature Gran % (Auto) 0.5 % (0-0.5) Neut % (Auto) 72.5 % (45.5-73.1) Lymph % (Auto) 17.9 L % (18.3-44.2) [place] % (Auto) 7.8 % (2.6-8.5) Eos % (Auto) 1.1 % (0-4.4) Baso % (Auto) 0.2 % (0.2-1.2) Lymph # (Auto) 1.76 K/mm3 (0.9-3.2) [place] # (Auto) 0.8 H K/mm3 (0.1-0.6) Eos # (Auto) 0.1 K/mm3 (0-0.3) Baso # (Auto) 0.0 K/mm3 (0.0-0.1) Abs Immat Gran (auto) 0.05 H K/mm3 (0.00-0.031) Absolute Neuts (auto) 7.1 H K/mm3 (1.3-6.7) Absolute Nucleated RBC 0.000 K/mm3 (0.0-0.012) Nucleated RBC % 0.0 % (0.0-0.2) Syphilis IgG/IgM Ab Non-reactive (Nonreactive) Blood Type A Positive Antibody Screen Negative Patient hx anesthesia problems: none Family hx anesthesia problems: none Results Review: All pre-operative results and documents have been reviewed as part of the pre-operative evaluation. [facility] Past Medical History Medical History No active medical problems Family History Family History Mother Hypertension Diabetes 1.5, managed as type 2 Cirrhosis Hyperlipidemia Father Hypertension COPD (chronic obstructive pulmonary disease) with emphysema Cerebrovascular accident Hyperlipidemia Grandparent Breast cancer Lung cancer Hypertension Hyperlipidemia Sibling Diabetes 1.5, managed as type 2 Social History Social History Smoking status: Never smoker Substance use: never Lack of Transportation: No Lack of Food: Never True Current Housing: I Have Housing Concerned About Future Housing: No Difficulty Paying Gas/Electric Bills: No Difficulty Paying for Meds: No Currently Unemployed: No Education: Associate Degree Difficulty w/ Childcare or Family Care: No Spiritual care concerns: No Anes - Eval Final PreProcedure Day of Procedure 08/16/25 10:13 Patient weight: morbidly obese ASA classification: III Anesthetic plan: proceed Anesthesia type and monitoring: regional epidural and standard monitoring Results Review: All pre-operative results and documents have been reviewed as part of the pre-operative evaluation. Informed Consent: The patient's anesthetic plan and its attendant risks and benefits were discussed with the patient/family/POA. Questions were solicited and answers provided to the satisfaction of the patient/family/POA.
[2025-08-16] MEDS: FAMOTIDINE 20 MG/2 ML VIAL IV PUSH (13:04)
--- NOTE | 2025-08-16 17:43 | PM.OBPRVD ---
OB - Vaginal Delivery Note Procedure Delivery date: 08/16/25 Events: Elective Induction of Labor Induction method: Per Misoprostol Protocol Delivery augmentation: Rupture of Membranes and Pitocin Delivery monitor: External FHT and Internal Uterine Route of delivery: Episiotomy description: None Laceration Description: None Specimen: No Quantitative Blood Loss (ml): 150 Anesthesia type: Epidural Disposition: Floor Complications: No immediate complications Narrative: See H&P and notes for details on patient's admission and labor. She progressed to complete cervical dilation and at the appropriate time began pushing. With adequate expulsive efforts by the mother, the baby's head was delivered without difficulty. Nuchal cord was not present. The baby's left shoulder was anterior and delivered under the pubic symphysis without difficulty. The posterior shoulder and the rest of the baby delivered without difficulty. The umbilical cord was doubly clamped and cut after 60 seconds of delayed cord clamping. Care of the was then assumed by the nursing staff. [place] Baby Date of : 08/16/25 Time of : 17:29 Gestational Age by Date: 40 gender: Female Weight (pounds): 9 Weight (ounces): 8 presentation: vertex position: Left Occiput Anterior Placenta delivery description: Expressed Cord Vessel Description: 3 Vessels and Delayed Cord Clamping
[2025-08-16] MEDS: OXYTOCIN 30 UNITS/NS 500 ML 30 UNITS/500 ML BAG 125 UNITS IV CONT (18:07)
[2025-08-16] MEDS: ACETAMINOPHEN 325 MG TABLET 650 MG PO (19:38)
[2025-08-16] MEDS: BENZOCAINE 20% AER SPR (*SP) 56 GM CAN 1 SPRAY TOPICAL (19:38)
[2025-08-16] MEDS: IBUPROFEN 600 MG TABLET PO (19:38)
[2025-08-16] MEDS: WITCH HAZEL 40 PADS 1 PAD TOPICAL (19:38)
--- NOTE | 2025-08-16 21:07 | OBPPTRN ---
Patient transferred to post room #284 via wheelchair.. Support person present. Oriented to unit, room, information board, rooming in, admission packet and security measures. Patient verbalizes understanding.
[2025-08-17 00:44] VITALS: BP 117/62; PULSE 102; RESP 17; TEMP 36.7; O2SAT 97
[2025-08-17] MEDS: ACETAMINOPHEN 325 MG TABLET 650 MG PO ×2 (00:57→08:54)
[2025-08-17] MEDS: IBUPROFEN 600 MG TABLET PO ×2 (00:57→08:53)
[2025-08-17 04:22] VITALS: BP 116/53; PULSE 102; RESP 15; TEMP 36.6; O2SAT 98
[2025-08-17 04:50] LABS: Hematocrit 33.1 % (37.0-47.0); Hemoglobin 11.0 g/dL (12.0-15.0)
[2025-08-17 07:50] VITALS: BP 132/81; PULSE 96; RESP 16; TEMP 36.5; O2SAT 99
[2025-08-17] MEDS: MULTIVIT/MIN/PREN/FOL AC/IRON TABLET 1 TAB PO (08:53)
[2025-08-17] MEDS: DOCUSATE SODIUM 100 MG CAPSULE PO (08:53)
--- NOTE | 2025-08-17 10:02 | PC.NURSE ---
Introductions were made, then consulted with patient to assess needs related to . Discussed with mother her?plans to feed?her and the?experience so far. Resources provided for inpatient and outpatient services with the feeding sheet, mom/baby guide and name written on the communication board. Breast pump provided due to mother's request, she wishes to only pump and bottle feed. Instructions given on cleaning, care, usage, that there should be no pain, pumping schedule for milk production, collection, and storage of human milk. Patient was assessed for correct placement, flange size, to pump for comfort and nipple stretching/stimulation for adequate milk production every 3 hours (8 times in 24 hours) 1-2 times at night. Parents are encouraged to record the pumping schedule on the feeding sheet.?Mother voiced understanding of the education shared along with mom/baby guide and the pump measurement, flange fit handout for additional resource information. Reported to the Primary RN.
[2025-08-17 12:24] VITALS: BP 125/77; PULSE 96; RESP 16; TEMP 36.8; O2SAT 98
[2025-08-17 20:12] VITALS: BP 132/76; PULSE 97; RESP 18; TEMP 36.4; O2SAT 100; O2SAT 97
--- NOTE | 2025-08-17 21:42 | P.PNOB_ITS ---
OB - PN: Subj Subjective Date/time seen: 08/17/25 08:42 Interval history: PPD#1 s/p Doing well, good pain control Voiding without issue Tolerating general diet OB - PN: Obj Data Labs 08/17/25 04:38 Labs: Laboratory Results - last 24 hr 08/17/25 04:38 Hgb 11.0 L Hct 33.1 L OB - PN A/P Assessment and Plan (1) (spontaneous vaginal delivery): Code(s): O80 - Encounter for full-term uncomplicated delivery Status: Acute Plan day: 1 Plan: routine care Time Spent With Patient Time: Total time spent is greater than 50% in coordination of care (as documented) at patient's floor/unit and/or counseling patient: Exam 2 Const: General: comfortable and no acute distress O rientation/consciousness: patient oriented x3 Resp: Effort & Inspection: normal respiratory effort
[2025-08-18] MEDS: IBUPROFEN 600 MG TABLET PO (07:45)
[2025-08-18] MEDS: ACETAMINOPHEN 325 MG TABLET 650 MG PO (07:45)
[2025-08-18 07:55] VITALS: BP 132/90; PULSE 87; RESP 18; TEMP 36.9; O2SAT 100
--- NOTE | 2025-08-18 09:05 | P.PNOB_ITS ---
OB - PN: Subj Subjective Date/time seen: 08/18/25 09:05 Interval history: PPD#2 s/p Doing well, good pain control Voiding without issue Tolerating general diet Ready for discharge today OB - PN: Obj Data Labs 08/17/25 04:38 OB - PN A/P Assessment and Plan (1) (spontaneous vaginal delivery): Code(s): O80 - Encounter for full-term uncomplicated delivery Status: Acute Plan day: 2 Plan: routine care and discharge home Time Spent With Patient Time: Total time spent is greater than 50% in coordination of care (as documented) at patient's floor/unit and/or counseling patient: Review of Systems 2 Review of Systems: All systems reviewed & are unremarkable except as noted in HPI and below Exam 2 Const: General: comfortable and no acute distress O rientation/consciousness: patient oriented x3 Resp: Effort & Inspection: normal respiratory effort
--- NOTE | 2025-08-18 09:08 | PM.OBDSVD ---
DS: Admitting Diagnosis Discharge Date 08/18/25 Admitting Diagnosis elective induction of labor DS: Discharge Diagnosis Discharge Diagnosis (1) (spontaneous vaginal delivery): Code(s): O80 - Encounter for full-term uncomplicated delivery Status: Acute OB - DS: Summary OB Procedures : None OB Procedures Intrapartum: Spontaneous Vag Delivery OB Procedures: : None Peripartum Data Laceration Description: None Episiotomy description: None Time Spent with Patient Time attestation: Total time spent providing and/or coordinating discharge services: Discharge Plan Discharge Attending physician on discharge: Lamin Muniz Discharging Clinician: Lamin Muniz Patient Disposition: Home Activity: may shower, as tolerated and pelvic rest Diet: as tolerated Patient Instructions: Antibiotic Form Patient Language: Luxembour[place] Stand Alone Forms: General Discharge Information Follow-up/Referrals: Lamin Muniz MD [Physician, [employer]] - 4 Weeks Discharge Medications: New ibuprofen 600 mg Tablet 600 mg PO Q6H PRN (Reason: Cramping) Qty: 30 0RF Continued Vitamin 27 mg iron- 800 mcg tablet 1 tablet PO DAILY Discontinued aspirin 81 mg capsule 162 mg PO DAILY Date of admission: 08/15/25 16:43 Primary Care Provider: LuzAlessandra Admitting Provider: Lamin Muniz Attending physician on admission: Lamin Muniz Condition: Stable
[2025-08-18] MEDS: MULTIVIT/MIN/PREN/FOL AC/IRON TABLET 1 TAB PO (09:33)
[2025-08-18] MEDS: DOCUSATE SODIUM 100 MG CAPSULE PO (09:33)
--- NOTE | 2025-08-18 10:00 | PC.NURSE ---
Consulted with mother concerning needs and she shared her ability to independently use the breast pump without pain, she plans on only pumping and bottle feeding. Mother is feeding appropriately for growth of infant and understands stimulating to eat if needed. has had appropriate feedings in the last 24 hours meets the outcomes for weight, output, blood sugar and jaundice at this time. Reinforced understanding of milk production, transition of milk, signs of adequate intake, transition of stool, prevention/relief of engorgement, plugged ducts, mastitis, responsive watching for feeding cues, the different methods of stimulating infant to breastfeed 1-3 hours after the start of the last feeding, community resources, and when to call a provider using the resource of the feeding sheet along with the mom and baby guide. Mother voiced understanding of the information shared, is confident to continue effectively feed her infant at home, when to call for assistance, denies any additional assistance or education at this time. Reported to the Primary RN.
[2025-08-19 12:24] VITALS: BP 134/83; PULSE 84; RESP 18; TEMP 36.8; O2SAT 100
== END 2025-08-18 14:00 | disposition home or self-care (01) | DRG 807 ==
LOC: ANHLDR 08-16 05:44 → ANHOB2 08-16 21:12
PROVIDERS: Admitting Provider Obstetrics & Gynecology; PCP Internal Medicine; Visit Provider Obstetrics & Gynecology
DX: O99.214 Obesity complicating childbirth (principal); Z37.0 Single live birth; Z3A.39 39 weeks gestation of pregnancy; E66.01 Morbid (severe) obesity due to excess calories
CPT/HCPCS: 36415; 85014; 85018; 85025; 86593; 86850; 86900; 86901; A9270; J2590; J2795; J7120